=== PATIENT | female | born 1935 | race Caucasian/White ===

== ENCOUNTER 2017-04-18 08:56 | Inpatient (IN) | payer MEDICARE, BC ==
[2017-04-18 09:29] LABS: CH 33.8; CHCM 33.9; HCT 45.7 % (34.0-46.0); HDW 2.13; Immature Gran Flag Marked; MCH 32.8 pg (25.0-35.0); MCHC 32.8 g/dL (31.0-37.0); Mean Platelet Volume 8.1; RBC 4.57 m/uL (3.80-5.40); RDW 13.8 % (11.5-15.5); WBC 14.5 k/uL (3.8-10.6); WBC (Perox) 14.24
[2017-04-18 09:41] LABS: ALT 43 U/L (9-52); AST 37 U/L (14-36); Add Differential Manual Differential; Alkaline Phosphatase 125 U/L (38-126); Anion Gap 10 mmol/L; Blood Urea Nitrogen 18 mg/dL (7-17); Calcium 8.8 mg/dL (8.4-10.2); Carbon Dioxide 30 mmol/L (22-30); Chloride 102 mmol/L (98-107); Glucose 167 mg/dL (74-99); Non-African American GFR(MDRD) >60 (>60 ml/min/1.73 sqM); Potassium 3.5 mmol/L (3.5-5.1); Sodium 142 mmol/L (137-145); Total Bilirubin 0.9 mg/dL (0.2-1.3); Total Protein 6.4 g/dL (6.3-8.2)
[2017-04-18 09:43] LABS: Prothrombin Time 10.4 sec (9.0-12.0)
--- NOTE | 2017-04-18 09:43 | CT ---
EXAMINATION TYPE: CT brain wo con for TPA DATE OF EXAM: 04/18/2017 COMPARISON: 12/12/2013 HISTORY: Rt side weakness CT DLP: 1147 mGycm Automated exposure control for dose reduction was used. FINDINGS: Exam particularly involving the posterior fossa limited by streak artifact. Assessment for hemorrhage therefore limited. There is extensive degenerative change with areas of low attenuation the periventricular region which are nonspecific but likely related to remote microvascular ischemia. Intracranial atherosclerotic changes are noted. There is to be an area of diminished attenuation invo lving the left basal ganglia. Cannot exclude slight mass effect upon the frontal horn of the left lat eral ventricle. Likely seen on the previous exam. No midline shift. IMPRESSION: LIMITED ASSESSMENT FOR POSTERIOR FOSSA DUE TO EXTREME STREAK ARTIFACT WITH PARTICULAR ATTENTION TO TH E CEREBELLUM. 2. REMAINING PORTIONS OF THE INTRACRANIAL STRUCTURES DEMONSTRATE NO DEFINITE INTRACRANIAL HEMORRHAGE OR MASS EFFECT. DEGENERATIVE CHANGES ARE SEEN HOWEVER, AREA OF DIMINISHED ATTENUATION INVOLVING THE L EFT BASAL GANGLIA WAS NOT SEEN ON THE PREVIOUS EXAM. COULD NOT EXCLUDE AN AREA OF ACUTE TO SUBACUTE I NFARCT. CORRELATE WITH MRI COULD BE OBTAINED. ADDITIONALLY, TINY HYPERDENSITY IN THE REGION OF THE M2 SEGMENT OF THE LEFT MCA NOTED ON AXIAL IMAGE 25. GIVEN THERE IS OTHER AREAS OF ATHEROSCLEROTIC PLAQU E THIS COULD REPRESENT PLAQUE ALTHOUGH A SMALL AREA OF ACUTE THROMBUS COULD NOT BE EXCLUDED WITHIN TH E VESSEL.
[2017-04-18 09:45] LABS: Manual Review Performed; Nucleated Red Blood Cells 0 /100 WBC (0-0); Total Cells Counted 200; Toxic Granulation Present
[2017-04-18 09:46] LABS: RBC Morphology Normal
[2017-04-18 09:58] LABS: Partial Thromboplastin Time 20.3 sec (22.0-30.0)
[2017-04-18] MEDS ORDERED: RX INFO: IV CONTRAST WAS GIVEN 1 EACH MISC MISCELLANE PRN (09:59)
[2017-04-18 10:13] LABS: Creatine Kinase MB 0.5 ng/mL (0.0-2.4)
[2017-04-18 10:19] LABS: Troponin I 0.098 ng/mL (0.000-0.034)
[2017-04-18 10:25] LABS: Appearance,Urine Clear (Clear); Bilirubin,Urine Negative (Negative); Glucose,Urine (UA) Trace (Negative); Ketones,Urine 1+ (Negative); Leukocyte Esterase,Urine Trace (Negative); Mucus,Urine Many /hpf; Nitrite,Urine Negative (Negative); Particle Count 10879; Protein,Urine 1+ (Negative); Specific Gravity,Urine 1.021 (1.001-1.035); UA Billing (MACRO vs. MICRO) MICRO; WBC,Urine 5 /hpf (0-5)
[2017-04-18] MEDS ORDERED: LABETALOL 5 MG/ML VIAL MDV IVP STA ×2 (10:30→13:08)
[2017-04-18] MEDS ORDERED: SODIUM CHLORIDE 0.9% 500 ML IV ONE (10:48)
--- NOTE | 2017-04-18 10:52 | CT ---
EXAMINATION TYPE: CT angio head neck DATE OF EXAM: 04/18/2017 HISTORY: altered mental status COMPARISON: NONE CT DLP: 466 mGycm. Automated Exposure Control for Dose Reduction was Utilized. TECHNIQUE: CTA scan of the neck is performed with IV Contrast, patient injected with 65 mL of Omnipa que 350, axial images are obtained, coronal and sagittal reformatted images are reviewed. Three-D rec onstructed images are created on an independent workstation and reviewed. FINDINGS: There is atherosclerotic plaque involving the right carotid bifurcation but no significant hemodynamic stenosis. External carotid artery appears patent. Mild atherosclerotic change involving t he proximal right internal carotid artery. There is mild atherosclerotic plaque involving the left carotid bifurcation. No significant stenosis. External carotid artery patent. There is atherosclerotic plaque involving the origin of the left common carotid artery estimated at 2 0%. Atherosclerotic plaque of the visualized thoracic aorta noted. On the left vertebral artery is dominant and the basilar artery enhances normally. There does appear to be area of narrowing involving the origin of the left posterior cerebral artery. Atherosclerotic plaque noted intracranially. Visualized portions of the carotid arteries enhance. 3-D reconstructions. Patient clinically able to cooperate could not exclude an aneurysm at the bifurc ation of the right MCA. Question lack of enhancement of the left MCA at its bifurcation. Only identify one branch vessel. Biapical pleural thickening noted. IMPRESSION: 1. Only identify one branch vessel at the bifurcation of the left MCA. Acute thrombosis in the differ ential diagnosis. 2. 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 3. Degenerative and nonspecific white matter changes are again seen with an area of asymmetric densit y involving the left basal ganglia, temporal lobe and areas of the parietal lobe which may been the b asis of an acute area of infarct. Correlate clinically. Correlate with diffusion MRI as warranted.
--- NOTE | 2017-04-18 11:16 | XR ---
EXAMINATION TYPE: XR chest 2V DATE OF EXAM: 04/18/2017 COMPARISON: Chest x-ray February 28, 2013. HISTORY: Altered mental status and weakness. TECHNIQUE: Frontal and lateral views of the chest are obtained. FINDINGS: There is chronic parenchymal change with new small left pleural effusion and associated le ft basilar atelectasis and/or infiltrate. There is moderate apical pleural thickening and scarring bi laterally redemonstrated The cardiac silhouette size is stable and enlarged with atherosclerotic and ectatic aorta. New central vascular congestion is felt present. The osseous structures are demineral ized. IMPRESSION: Chronic parenchymal changes and cardiomegaly with new mild central vascular congestion a nd new small left pleural effusion and associated left basilar atelectasis and/or infiltrate noted.
--- NOTE | 2017-04-18 12:21 | ED ---
General Adult HPI - General Chief complaint: Weakness Stated complaint: Altered Mental Status Time Seen by Provider: 04/18/17 09:07 Source: family, EMS, RN notes reviewed Mode of arrival: EMS - History of Present Illness Initial comments: 82-year-old female presenting from home with altered mental status. Patient was last seen normal at 9:30 PM last night. She has dementia and is usually alert and oriented 1. She was able to help with activities of daily living at baseline. She was found by her unarousable, staring to the left. Patient was brought to the emergency at approximately 9 AM. No known history of anticoagulation. No reported history of pain complaints, fever, vomiting. - Related Data Home Medications Medication Instructions Recorded Confirmed Atorvastatin [Lipitor] 40 mg PO HS 04/18/17 04/18/17 Donepezil [Aricept] 10 mg PO DAILY 04/18/17 04/18/17 Lisinopril [Zestril] 40 mg PO DAILY 04/18/17 04/18/17 Metoprolol Tartrate [Lopressor] 50 mg PO BID 04/18/17 04/18/17 Tolterodine ER [Detrol LA] 4 mg PO HS 04/18/17 04/18/17 carBAMazepine 200 mg PO QID 04/18/17 04/18/17 Allergies Allergy/AdvReac Type Severity Reaction Status Date / Time ketorolac [From Toradol] Allergy Unknown Verified 04/18/17 12:12 meperidine [From Demerol] Allergy Unknown Verified 04/18/17 12:12 Penicillins Allergy Unknown Verified 04/18/17 12:12 Review of Systems ROS Statement: Those systems with pertinent positive or pertinent negative responses have been documented in the HPI. ROS Other: All systems not noted in ROS Statement are negative. Limitations: ROS unobtainable due to patients medical condition Past Medical History Past Medical History: Dementia, Hypertension History of Any Multi-Drug Resistant Organisms: Unobtainable Past Psychological History: Unable to Obtain Smoking Status: Unknown if ever smoked Past Alcohol Use History: Unable to Obtain Past Drug Use History: Unable to Obtain General Exam General appearance: lethargic Head exam: Present: other (Bruising over right frontal and temporal region appears old.) Eye exam: Present: other (left gaze, right-sided neglect) ENT exam: Present: mucous membranes dry Neck exam: Present: normal inspection. Absent: meningismus Respiratory exam: Present: rhonchi. Absent: respiratory distress Cardiovascular Exam: Present: normal rhythm, tachycardia GI/Abdominal exam: Present: soft. Absent: distended, tenderness Extremities exam: Present: normal capillary refill. Absent: pedal edema Neurological exam: Present: motor sensory deficit (Flaccid paralysis on the right, left gaze, minimally responsive, NIH of 29) Psychiatric exam: Present: depressed, flat affect Skin exam: Present: warm, dry, other (Ecchymosis, right face, bilateral upper and lower extremities) Course Vital Signs 04/18/17 04/18/17 04/18/17 09:00 09:22 09:37 Pulse Rate 111 H 110 H 104 H Respiratory 19 20 19 Rate Blood Pressure 189/107 200/137 O2 Sat by Pulse 87 L Oximetry 04/18/17 04/18/17 04/18/17 09:52 10:07 10:24 Pulse Rate 110 H 102 H 104 H Respiratory 20 19 20 Rate Blood Pressure 221/117 213/88 214/79 O2 Sat by Pulse Oximetry 04/18/17 04/18/17 04/18/17 10:37 10:52 11:07 Pulse Rate 100 105 H 98 Respiratory 20 20 19 Rate Blood Pressure 197/92 192/99 172/80 O2 Sat by Pulse Oximetry 04/18/17 11:30 Pulse Rate 94 Respiratory 19 Rate Blood Pressure 163/83 O2 Sat by Pulse Oximetry EKG Findings - EKG Comments: EKG Findings:: EKG shows sinus tachycardia with a left anterior fascicular block ventricular rate of 106, MD interval 156, QRS duration 88, QTC 448. Medical Decision Making - Medical Decision Making 82-year-old female presenting with altered mental status and right-sided flaccid paralysis. Patient does have leftward gaze with right-sided neglect. NIH is 29. Patient woke with these symptoms at 6 AM. Last seen normal 9:[address] is obtained and is negative for intracranial hemorrhage, there is diminished attenuation in the left basal ganglia, and concern for acute infarction in the left M2 distribution. CT is obtained and is consistent with these findings for acute thrombus. Given the time course patient is not a TPA candidate. Case is discussed with the neuro interventionalist. He believes this is a completed infarct and no intervention is needed. Laboratory studies do reveal mild elevation in serum white count, chest x-ray shows atelectasis first infiltrated. Troponin is mildly elevated, will be trended. Patient will be admitted for neurology evaluation. Diagnosis: Acute left MCA stroke with right-sided flaccid paralysis. - Lab Data Result diagrams: 04/18/17 09:10 04/18/17 09:10 Lab Results 04/18/17 04/18/17 04/18/17 Range/Units 09:10 09:10 09:10 WBC 14.5 H (3.8-10.6) k/uL RBC 4.57 (3.80-5.40) m/uL Hgb 15.0 (11.4-16.0) gm/dL Hct 45.7 (34.0-46.0) % MCV 100.0 (80.0-100.0) fL MCH 32.8 (25.0-35.0) pg MCHC 32.8 (31.0-37.0) g/dL RDW 13.8 (11.5-15.5) % Plt Count 257 (150-450) k/uL Neutrophils % (Manual) 67.5 % Band Neutrophils % 15.0 % Lymphocytes % (Manual) 5.5 % Monocytes % (Manual) 10.5 % Eosinophils % (Manual) 1.0 % Basophils % (Manual) 0.5 % Neutrophils # (Manual) 12.0 H (1.3-7.7) k/uL Lymphocytes # (Manual) 0.8 L (1.0-4.8) k/uL Monocytes # (Manual) 1.5 H (0-1.0) k/uL Eosinophils # (Manual) 0.1 (0-0.7) k/uL Basophils # (Manual) 0.1 (0-0.2) k/uL Nucleated RBCs 0 (0-0) /100 WBC Manual Slide Review Performed Toxic Granulation Present RBC Morphology Normal PT (9.0-12.0) sec INR (<1.2) APTT (22.0-30.0) sec Sodium 142 (137-145) mmol/L Potassium 3.5 (3.5-5.1) mmol/L Chloride 102 (98-107) mmol/L Carbon Dioxide 30 (22-30) mmol/L Anion Gap 10 mmol/L BUN 18 H (7-17) mg/dL Creatinine 0.56 (0.52-1.04) mg/dL Est GFR (MDRD) Af Amer >60 (>60 ml/min/1.73 sqM) Est GFR (MDRD) Non-Af >60 (>60 ml/min/1.73 sqM) Glucose 167 H (74-99) mg/dL Calcium 8.8 (8.4-10.2) mg/dL Total Bilirubin 0.9 (0.2-1.3) mg/dL AST 37 H (14-36) U/L ALT 43 (9-52) U/L Alkaline Phosphatase 125 (38-126) U/L Total Creatine Kinase 196 H (30-135) U/L CK-MB (CK-2) 0.5 (0.0-2.4) ng/mL CK-MB (CK-2) Rel Index 0.3 Troponin I 0.098 H* (0.000-0.034) ng/mL Total Protein 6.4 (6.3-8.2) g/dL Albumin 3.5 (3.5-5.0) g/dL Urine Color Urine Appearance (Clear) Urine pH (5.0-8.0) Ur Specific [place] (1.001-1.035) Urine Protein (Negative) Urine Glucose (UA) (Negative) Urine Ketones (Negative) Urine Blood (Negative) Urine Nitrite (Negative) Urine Bilirubin (Negative) Urine Urobilinogen (<2.0) mg/dL Ur Leukocyte Esterase (Negative) Urine WBC (0-5) /hpf Urine Mucus (None) /hpf 04/18/17 04/18/17 Range/Units 09:10 09:54 WBC (3.8-10.6) k/uL RBC (3.80-5.40) m/uL Hgb (11.4-16.0) gm/dL Hct (34.0-46.0) % MCV (80.0-100.0) fL MCH (25.0-35.0) pg MCHC (31.0-37.0) g/dL RDW (11.5-15.5) % Plt Count (150-450) k/uL Neutrophils % (Manual) % Band Neutrophils % % Lymphocytes % (Manual) % Monocytes % (Manual) % Eosinophils % (Manual) % Basophils % (Manual) % Neutrophils # (Manual) (1.3-7.7) k/uL Lymphocytes # (Manual) (1.0-4.8) k/uL Monocytes # (Manual) (0-1.0) k/uL Eosinophils # (Manual) (0-0.7) k/uL Basophils # (Manual) (0-0.2) k/uL Nucleated RBCs (0-0) /100 WBC Manual Slide Review Toxic Granulation RBC Morphology PT 10.4 (9.0-12.0) sec INR 1.0 (<1.2) APTT 20.3 L (22.0-30.0) sec Sodium (137-145) mmol/L Potassium (3.5-5.1) mmol/L Chloride (98-107) mmol/L Carbon Dioxide (22-30) mmol/L Anion Gap mmol/L BUN (7-17) mg/dL Creatinine (0.52-1.04) mg/dL Est GFR (MDRD) Af Amer (>60 ml/min/1.73 sqM) Est GFR (MDRD) Non-Af (>60 ml/min/1.73 sqM) Glucose (74-99) mg/dL Calcium (8.4-10.2) mg/dL Total Bilirubin (0.2-1.3) mg/dL AST (14-36) U/L ALT (9-52) U/L Alkaline Phosphatase (38-126) U/L Total Creatine Kinase (30-135) U/L CK-MB (CK-2) (0.0-2.4) ng/mL CK-MB (CK-2) Rel Index Troponin I (0.000-0.034) ng/mL Total Protein (6.3-8.2) g/dL Albumin (3.5-5.0) g/dL Urine Color Yellow Urine Appearance Clear (Clear) Urine pH 6.0 (5.0-8.0) Ur Specific [place] 1.021 (1.001-1.035) Urine Protein 1+ H (Negative) Urine Glucose (UA) Trace H (Negative) Urine Ketones 1+ H (Negative) Urine Blood Negative (Negative) Urine Nitrite Negative (Negative) Urine Bilirubin Negative (Negative) Urine Urobilinogen 3.0 (<2.0) mg/dL Ur Leukocyte Esterase Trace H (Negative) Urine WBC 5 (0-5) /hpf Urine Mucus Many H (None) /hpf Critical Care Time Critical Care Time: Yes Total Critical Care Time: 43 Disposition Clinical Impression: CVA (cerebral vascular accident) Disposition: ADMITTED IP TO THIS [facility] Condition: Serious Referrals: None,Stated [Primary Care Provider] - 1-2 days Decision to Admit Reason: Admit from EC Decision Date: 04/18/17 Decision Time: 11:30
[2017-04-18] MEDS ORDERED: ASPIRIN 300 MG SUPP RECTAL STA (12:24)
[2017-04-18] MEDS: SODIUM CHLORIDE 0.9% 1,000 ML IV SCH (13:15)
--- NOTE | 2017-04-18 15:36 | US ---
EXAMINATION TYPE: US carotid duplex BILAT DATE OF EXAM: 04/18/2017 COMPARISON: CTA head and neck earlier today. carotid ultrasound June 10, 2013. CLINICAL HISTORY: Stenosis. Stroke, pt unresponsive EXAM MEASUREMENTS: RIGHT: Peak Systolic Velocity (PSV) cm/sec ----- Right CCA: 49.8 ----- Right ICA: 61.1 ----- Right ECA: 54.8 ICA/CCA ratio: 1.2 RIGHT: End Diastole cm/sec ----- Right CCA: 10.6 ----- Right ICA: 17.7 ----- Right ECA: 15.3 LEFT: Peak Systolic Velocity (PSV) cm/sec ----- Left CCA: 36.2 ----- Left ICA: 84.5 ----- Left ECA: 85.6 ICA/CCA ratio: 2.3 LEFT: End Diastole cm/sec ----- Left CCA: 4.9 ----- Left ICA: 19.7 ----- Left ECA: 7.8 VERTEBRALS (direction of flow): Right Vertebral: Antegrade Left Vertebral: Unable to visualize No significant stenosis seen, higher velocities left ICA due to tortuosity Grayscale images redemonstrate fairly moderate eccentric hyperechoic plaque at right carotid bulb wit h more mild to moderate eccentric plaque at left carotid bulb. Velocity measurements and ratios in vi sualized portion of both internal carotid arteries remains within normal limits. Technologist cannot identified normal antegrade flow in left vertebral artery but appears dominant and patent without sig nificant stenosis on recent CTA study. IMPRESSION: Mild to moderate calcified plaque bilaterally redemonstrated without significant stenosi s seen in either internal carotid artery. Findings correlate with recent CTA exam.
[2017-04-18 16:11] VITALS: RESP 20
--- NOTE | 2017-04-18 22:34 | P.HPIM ---
History of Present Illness H&P Date: 04/18/17 Chief Complaint: Right-sided weakness History of presenting complaint: This is a 82-year-old patient, the history is obtained by the [id number] at the bedside. Patient's chronic stable medical conditions include 1 artery disease, dementia, hypertension, hyperlipidemia, osteoarthritis, trigeminal neuralgia, and neurogenic bladder. Patient's called the son stating that the patient could not be woken up artery responsive and when the sentiment and they found that the right side was not morning she'll not speaking and decreased responsiveness. As patient is brought into the ER. Review of systems cannot be done as patient cannot speak Past history: Coronary artery disease, dementia, hypertension, hyperlipidemia, osteoarthritis , trigeminal neuralgia, neurogenic bladder, gait dysfunction, left eye ptosis Surgical history: Not known Home medications: Reviewed in the computed ALLERGIES: (, Penicillin, meperidine VITAL SIGNS: Pulse 111, respiration 18, that pressure 189/107, pulse ox 87% room air GENERAL: Thin built, laying awake looking to the left. EYES: Pupils equal. Conjunctiva normal. HEENT: External appearance of nose and ears normal, oral cavity dry mucous membrane. NECK: JVD not raised; masses not palpable. HEART: First and second heart sounds are normal; no edema. LUNGS: Respiratory rate normal; decreased breath sounds. ABDOMEN: Soft, nontender, liver spleen not palpable, no masses palpable. LYMPHATICS: No lymph nodes palpable in the axilla and neck. PSYCH: Patient not following commandsl. NEUROLOGICAL: [Slight facial asymmetry, looking to the left, in addition to the right side, power 0/5 on the right side, increased reflexes on the right side, positive Babinski on the right side Investigations: White count 14.5, hemoglobin 15, platelets 257, potassium 3.5, troponin 0.098 EKG-reviewed Computed tomography scan of the brain-possible changes in the left basal ganglia Carotid Doppler-no could go stenosis Assessment: -Acute stroke in the basal ganglia causing right hemiplegia and dysphagia and dysarthria with right neglect and a right-handed patient likely ischemic in nature -Cor artery disease with prior history of PA -Alzheimer's dementia late onset type advanced -Essential hypertension urgent on presentation -Hyperlipidemia -Primary osteoarthritis multiple joints bilateral -Chronic trigeminal neuralgia -Chronic neurogenic bladder Plan: Care was discussed at length with the bed.[id number] the bedside. She thinks the patient is DO NOT RESUSCITATE and will confirm the same and the . In the meantime to proceed with aspiration precautions, NG tube to give medications for care with the son, DVT prophylaxis, subcu the patient nothing by mouth. Prognosis appears poor we'll see how the patient doesn't another 24 hours and it is no improvement comfort care may be appropriate. Given the multiple comorbidities. Past Medical History Past Medical History: Coronary Artery Disease (CAD), Dementia, Eye Disorder, Hyperlipidemia, Hypertension, Osteoarthritis (OA) Additional Past Medical History / Comment(s): Severe dementia, L eye ptosis, trigeminal neuralgia, deteriorating language/difficulty expressing self, balance issues with falls, gait disturbance, difficulty controlling bladder, neurogenic bladder. History of Any Multi-Drug Resistant Organisms: None Reported Past Surgical History: Unable to Obtain Past Anesthesia/Blood Transfusion Reactions: Unable to Obtain Smoking Status: Unknown if ever smoked - Past Family History Father Family Medical History: Unable to Obtain Mother Family Medical History: Unable to Obtain Medications and Allergies Home Medications Medication Instructions Recorded Confirmed Type Atorvastatin [Lipitor] 40 mg PO HS 04/18/17 04/18/17 History Donepezil [Aricept] 10 mg PO DAILY 04/18/17 04/18/17 History Lisinopril [Zestril] 40 mg PO DAILY 04/18/17 04/18/17 History Metoprolol Tartrate [Lopressor] 50 mg PO BID 04/18/17 04/18/17 History Tolterodine ER [Detrol LA] 4 mg PO HS 04/18/17 04/18/17 History carBAMazepine 200 mg PO QID 04/18/17 04/18/17 History Allergies Allergy/AdvReac Type Severity Reaction Status Date / Time ketorolac [From Toradol] Allergy Unknown Verified 04/18/17 12:12 meperidine [From Demerol] Allergy Unknown Verified 04/18/17 12:12 Penicillins Allergy Unknown Verified 04/18/17 12:12 Results CBC & Chem 7: 04/18/17 09:10 04/18/17 09:10
[2017-04-19] MEDS: carBAMazepine 200 MG TAB PO SCH ×5 (05:56→21:03)
[2017-04-19] MEDS: METOPROLOL TARTRATE 50 MG TAB PO SCH ×3 (05:56→21:03)
[2017-04-19] MEDS: ATORVASTATIN 40 MG TAB PO SCH ×2 (05:56→21:03)
[2017-04-19 06:40] LABS: Mean Platelet Volume 7.2
[2017-04-19] MEDS: HEPARIN SODIUM,PORCINE 5,000 UNIT/ML 1 ML VIAL SQ SCH ×3 (06:41→21:04)
[2017-04-19 06:58] LABS: Cholesterol 149 mg/dL (<200); HDL Cholesterol 55 mg/dL (40-60)
[2017-04-19] MEDS: LISINOPRIL 20 MG TAB PO SCH (07:29)
[2017-04-19] MEDS: PANTOPRAZOLE 40 MG/10 ML VIAL IVP SCH (07:30)
[2017-04-19] MEDS: ASPIRIN 300 MG SUPP RECTAL SCH (08:03)
[2017-04-19] MEDS: SODIUM CHLORIDE 0.9% 1,000 ML IV SCH ×3 (08:05→21:05)
--- NOTE | 2017-04-19 09:22 | CONS ---
DATE OF CONSULTATION: 04/18/2017 CHIEF COMPLAINT: Stroke. HISTORY OF PRESENT ILLNESS: The patient is an 82-year-old female who is being evaluated today on 04/18/17 by the neurology service per the request of Dr. Ochoa for a stroke. The patient was brought in to [facility] Emergency Room from her home after she was found to be difficult to arouse. It was noticed that the patient was not moving her right side. In the emergency room, she was noticed to have flaccid paralysis on the right side with left gaze preference and right side neglect. The patient was also nonverbal. The patient does have history of dementia and is usually oriented to person only. In the emergency room, a CT scan of the brain was done, which showed hypoattenuation in the left middle cerebral artery distribution with an evidence of a thrombus in the left middle cerebral artery. 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 Her carotid Doppler showed no hemodynamically significant stenosis. Her CBC was normal except for mild leukocytosis at 14.5. The patient was started on rectal aspirin 300 mg daily and on IV hydration and admitted for further workup and management. The patient is unable to swallow. At the time of my evaluation, she is lying in her bed and continues to have flaccid paralysis on her right side and appears to have global aphasia. She does move the left side spontaneously. She has an obvious right gaze palsy. PAST MEDICAL HISTORY: Dementia, dyslipidemia, hypertension. SOCIAL HISTORY: Unable to obtain. FAMILY HISTORY: Unable to obtain. HOME MEDICATIONS: Reviewed in the chart. ALLERGIES: TORADOL, DEMEROL, PENICILLIN. REVIEW OF SYSTEMS: Unable to obtain due to ( ). PHYSICAL EXAM: Vital signs show a temperature of 96.8, pulse 100, respirations 20, blood pressure 169/94. GENERAL APPEARANCE: The patient is a thin, elderly, female who appears to be resting with an obvious right flaccid paralysis. Neck is supple with no masses felt. CARDIOVASCULAR: Regular rate and rhythm. ABDOMEN: Nontender, nondistended. Extremities showed no edema or clubbing. NEUROLOGICAL EXAM: The patient is awake, but appears to have global aphasia. She does not follow any commands. She does move the left upper and lower extremities spontaneously, but there is flaccid paralysis on the right side. She has an obvious right facial droop and right gaze palsy. No tremors or seizure-like activity are seen. IMPRESSION: 1. Acute ischemic stroke, left middle cerebral artery distribution. 2. Right hemiplegia. 3. Global aphasia. 4. Dysphagia. RECOMMENDATIONS: The patient does appear to have suffered a large acute ischemic stroke involving the left middle cerebral artery with evidence of a thrombus on CT scan of the brain and CT angiogram of the brain. Due to the time frame and due to the size of the stroke and given the patient's advanced age and preexisting comorbidities, she was not felt to be a candidate for TPA. Continue aspirin 300 mg daily rectally. Speech therapy and physical therapy have been consulted. I will start her on Protonix IV for GI prophylaxis and heparin for DVT prophylaxis. I will order for daily platelet count. An EEG has been ordered. Continue IV fluid as tolerated. According to the nursing staff , the patient's family will be meeting tomorrow to discuss the possibility of PEG tube placement if she continues to have dysphagia. Prognosis is guarded. I will continue to follow with you. Further recommendations to follow. Thank you for allowing me to participate in the care of your patient. If you have any questions, please feel free to contact me. TIN
[2017-04-19 11:42] VITALS: BMI 12.6
--- NOTE | 2017-04-19 16:33 | P.PN ---
Subjective Principal diagnosis: Patient is an 82-year-old female who is being followed by the neurology service for stroke. Patient was at home and was difficult to arouse so she was brought to [facility] emergency room for further evaluation. Patient was noted to have flaccid paralysis on the right side with left gaze preference and right-sided neglect. Patient was also nonverbal. Patient lives with family but does have a history of dementia. Computed tomography scan of the brain showed hypoattenuation in the left middle cerebral artery distribution with an evidence of a thrombus in the left middle cerebral artery. 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 Carotid Doppler showed no hemodynamically significant stenosis. Due to patient's decreased mentation and inability to swallow, patient was started on rectal aspirin 300 mg daily and IV hydration. At the time of my evaluation, patient is resting comfortably in bed and continues to have flaccid paralysis on the right side and appears to have global aphasia. Patient does move the left side spontaneously. Objective - Vital Signs Vital signs: Vital Signs Temp 97.4 F L 04/19/17 15:50 Pulse 105 H 04/19/17 15:50 Resp 20 04/19/17 15:50 BP 164/98 04/19/17 15:50 Pulse Ox 94 L 04/19/17 15:50 Intake & Output 04/18/17 04/19/17 04/19/17 18:59 06:59 18:59 Intake Total 500 800 Output Total 600 Balance 500 200 Weight 54.431 kg 35.5 kg 35.5 kg Intake: IV 500 800 Sodium Chloride 0.9% 1, 500 800 000 ml @ 100 mls/hr IV . Q10H [facility] Rx#:[id number] Oral 0 Output: Urine 600 Other: Voiding Method Indwelling Catheter Indwelling Catheter Indwelling Catheter # Voids 1 - Exam PHYSICAL EXAM: GENERAL APPEARANCE: Patient is a well-developed, female who appears to be in no acute distress. HEENT: Normocephalic, atraumatic, obvious right facial asymmetry is seen. Neck is supple with no masses felt. CARDIOVASCULAR: Regular rate and rhythm. ABDOMEN: Nontender, nondistended. EXTREMITIES: Show no edema or clubbing. NEUROLOGICAL EXAM: Patient awakens when her name is called. She does not make eye contact. Patient does appear to have global aphasia. Patient does not follow simple commands. She does move left upper and lower extremities spontaneously. Patient did reach out with her left hand to hold my hand. There is flaccid paralysis on the right side. She has an obvious right facial droop and right gaze palsy. No tremors or seizure-like activity are seen. - Labs CBC & Chem 7: 04/19/17 05:56 04/18/17 09:10 Assessment and Plan Plan: Impression: 1. Acute ischemic stroke, left middle cerebral artery distribution 2. Right hemiplegia 3. Global aphasia 4. Dysphagia Recommendations: Patient does appear to have suffered a large acute ischemic stroke involving left middle cerebral artery with evidence of a thrombus on computed tomography scan of the brain and CT angiogram of the brain. Patient was not felt to be a candidate for TPA. I recommend to continue aspirin 300 mg daily rectally. Continue speech therapy and physical therapy. Continue neurological checks. Reportedly family had a meeting and it was decided patient was to be made DO NOT RESUSCITATE. Prognosis continues to be guarded. EEG was ordered but not yet performed. Continue supportive care. I will continue to follow with you. Further recommendations to follow. I performed an examination of the patient and discussed the management with the [employer]. I have reviewed the [employer] notes and agree with the findings and plan of care.
--- NOTE | 2017-04-19 19:04 | P.PN ---
Progress Note - Text DATE OF SERVICE: 04/19/2017 PRESENTING COMPLAINT: Stroke INTERVAL HISTORY: 82-year-old patient who could not be woken up and was significantly unresponsive to her . Patient was brought to the emergency department computed tomography scan confirmed acute stroke. 04/19/2017: Patient is minimally responsive does arouse slightly to physical stimuli. No purposeful movement. IV fluids continue, patient remains nothing by mouth due to current mental status. Ruelas catheter in place. Neurology consulted. REVIEW OF SYSTEMS: Unable to assess secondary to patient condition. CURRENT MEDICATIONS Aspirin, Lipitor, Tegretol, heparin, Zestril, Lopressor, Protonix. PHYSICAL EXAM VITAL SIGNS: Temperature 97.2, heart rate 104, respiratory rate 20, blood pressure 186/98, oxygen saturation 93% on 15 L nonrebreather mask. GENERAL APPEARANCE: Lying in bed, looks to the left. . EYES: Pupils equal. Conjunctiva normal. NECK: JVD not raised. Mass not palpable. RESPIRATORY: Respiratory effort normal. Lungs decreased breath sounds. CARDIOVASCULAR: First and second sounds normal. No edema. ABDOMEN: Soft. Liver and spleen not palpable. No tenderness. No mass palpable. PSYCHIATRY: Alert and oriented x3. Mood and affect normal. NEUROLOGICAL: Slight facial asymmetry, looking to the left, power 0/5 on the right side, increased reflexes on the right side positive Babinski on the right side INVESTIGATIONS: LABS: White blood cell count 14.5, INR 1.0, sodium 1.4 to, potassium 3.5, troponin 0.098. Carotid Doppler: Mild to moderate calcified plaque bilaterally 3 demonstrated without significant stenosis seen in either internal carotid artery. ASSESSMENT: -Acute stroke in the basal ganglia causing right hemiplegia and dysphagia and dysarthria with right neglect and a right-handed patient likely ischemic in nature -Coronary artery disease with prior history of CA -Alzheimer's dementia late onset type advanced -Essential hypertension urgent on presentation -Hyperlipidemia -Primary osteoarthritis multiple joints bilateral -Chronic trigeminal neuralgia -Chronic neurogenic bladder PLAN: Continue neuro checks, EEG pending, speech and physical therapy have been consulted. We will continue to monitor patient very closely, prognosis is guarded. Plan of care discussion deferred until family present at the bedside. WEBSITE OPTIMIZATION STRATEGIST statement: Patient was seen and examined by nurse practitioner Ping Bloom and all elements of the case discussed with attending Dr. Ochoa
--- NOTE | 2017-04-20 05:40 | EEG ---
DATE OF SERVICE: 04/19/2017 REASON FOR TESTING: Stroke. DESCRIPTION OF THE PROCEDURE: This EEG was performed using a 21-channel digital electroencephalograph, following international 10-20 system. DESCRIPTION OF THE RECORDING: From the beginning of the tracing, and with the patient's eyes closed, the background rhythm was mostly consisting of 6 Hz theta frequency in the posterior occipital leads. No obvious asymmetry is seen. Photic stimulation was performed with no driving response seen. No pathological waves were elicited. Hyperventilation was not performed. The patient remains awake throughout the tracing. No epileptiform discharges were seen. Her EKG lead showed a tachycardiac rate with an irregularly irregular rhythm. INTERPRETATION: This awake EEG is abnormal due to the presence of generalized slowing of the background rhythm, mostly in a theta range. This is consistent with mild encephalopathy. No epileptiform discharges were seen. The absence of epileptiform discharges does not rule out the diagnosis of epilepsy, therefore clinical correlation is recommended. Of note, her EKG lead showed an irregularly, irregular rhythm with a tachycardiac rate. TIN
[2017-04-20 06:26] LABS: Mean Platelet Volume 8.6
[2017-04-20] MEDS: SODIUM CHLORIDE 0.9% 1,000 ML IV SCH ×2 (08:35→08:56)
[2017-04-20] MEDS: METOPROLOL TARTRATE 50 MG TAB PO SCH (08:36)
[2017-04-20] MEDS: carBAMazepine 200 MG TAB PO SCH ×2 (08:36→15:35)
[2017-04-20] MEDS: LISINOPRIL 20 MG TAB PO SCH (08:36)
[2017-04-20] MEDS: ASPIRIN 300 MG SUPP RECTAL SCH (08:49)
[2017-04-20] MEDS: HEPARIN SODIUM,PORCINE 5,000 UNIT/ML 1 ML VIAL SQ SCH (08:56)
[2017-04-20] MEDS ORDERED: FUROSEMIDE 10 MG/ML 4 ML VIAL IV STA (13:52)
[2017-04-20] MEDS ORDERED: FUROSEMIDE 10 MG/ML 4 ML VIAL ONE (13:54)
[2017-04-20] MEDS: PANTOPRAZOLE 40 MG/10 ML VIAL IVP SCH (13:56)
[2017-04-20] MEDS ORDERED: MORPHINE SULFATE (100 MG/2 ML) 100 MG in SODIUM CHLORIDE 0.9% 100 ML IV SCH (14:15)
[2017-04-20 16:51] VITALS: BP 144/69; PULSE 103; TEMP 99
--- NOTE | 2017-04-20 17:18 | P.PN ---
Subjective Patient is admitted for right-sided hemiplegia patient has massive stroke involving the left basal ganglia. I extensively reviewed her chart and I had extensive discussion with the family spent about 40 minutes in discussions with the family. Patient was in the spring distress when I valid the patient patient has pulmonary edema from the previous x-rays. I'm giving her Lasix. I did discussed her case with neurologist. Patient is unable to swallow anything at this time. And patient chances of reasonable neurological recovery is very minimal to no. Because of that I did discuss with the family regarding the options. [id number] and patient's were at the bedside. Family meditation of hospice. Hospice services was consulted. Objective - Vital Signs Vital signs: Vital Signs Temp 99.0 F 04/20/17 16:00 Pulse 103 H 04/20/17 16:00 Resp 20 04/20/17 16:00 BP 144/69 04/20/17 16:00 Pulse Ox 86 L 04/20/17 16:00 Intake & Output 04/19/17 04/20/17 04/20/17 18:59 06:59 18:59 Intake Total 800 500 Output Total 600 700 Balance 200 -200 Weight 35.5 kg 0 g Intake: IV 800 500 Sodium Chloride 0.9% 1, 800 500 000 ml @ 100 mls/hr IV . Q10H [facility] Rx#:[id number] Oral 0 0 Output: Urine 600 700 Other: Voiding Method Indwelling Catheter Indwelling Catheter Indwelling Catheter # Voids 1 - Exam PHYSICAL EXAMINATION: GENERAL: Patient is on 100% nonrebreather in significant respiratory distress. Patient is awake is in significant respiratory distress unable to follow commands. HEENT: Pupils are round and equally reacting to light.. No scleral icterus. No conjunctival pallor. Normocephalic, atraumatic. No pharyngeal erythema. No thyromegaly. CARDIOVASCULAR: S1 and S2 present. No murmurs, rubs, or gallops. Tachycardic PULMONARY: Patient has diffuse crackles bilaterally. ABDOMEN: Soft, nontender, nondistended, normoactive bowel sounds. No palpable organomegaly. MUSCULOSKELETAL: No joint swelling or deformity. EXTREMITIES: No cyanosis, clubbing, or pedal edema. NEUROLOGICAL: Weakness on the right side of the body. SKIN: No rashes. - Labs CBC & Chem 7: 04/20/17 05:49 04/18/17 09:10 Assessment and Plan Plan: Cerebrovascular accident involving the left basal ganglia, extensive stroke. #2 dementia positive mistype advanced. #3 essential hypertension next and #4 hyperlipidemia #5 pulmonary edema unsure of the etiology at this time patient may have congestive heart failure unknown ejection fraction at this time. #6 trigeminal neurology. #7 neurogenic bladder Plan as mentioned above and interval history patient will be started on morphine drip, hospice will be consulted. Hospital patient is appropriate for hospice patient's family declined any further intervention including PEG tube placement.
--- NOTE | 2017-04-20 17:19 | P.DS ---
Providers Date of admission: 04/18/17 12:38 Attending physician: Jamie Ochoa Consults: 04/18/17 12:39 Consult Physician Urgent Consulting Provider: Eliza Craig Consult Reason/Comments: CVA Do you want consulting provider notified?: Yes Primary care physician: Stated None Hospital Course: Please refer to my progress note Patient Condition at Discharge: Serious Plan - Discharge Summary New Discharge Prescriptions: No Action Lisinopril [Zestril] 40 mg PO DAILY Tolterodine ER [Detrol LA] 4 mg PO HS Metoprolol Tartrate [Lopressor] 50 mg PO BID Donepezil [Aricept] 10 mg PO DAILY Atorvastatin [Lipitor] 40 mg PO HS carBAMazepine 200 mg PO QID Discharge Medication List Atorvastatin [Lipitor] 40 mg PO HS 04/18/17 [History] Donepezil [Aricept] 10 mg PO DAILY 04/18/17 [History] Lisinopril [Zestril] 40 mg PO DAILY 04/18/17 [History] Metoprolol Tartrate [Lopressor] 50 mg PO BID 04/18/17 [History] Tolterodine ER [Detrol LA] 4 mg PO HS 04/18/17 [History] carBAMazepine 200 mg PO QID 04/18/17 [History] Follow up Appointment(s)/Referral(s): None,Stated [Primary Care Provider] - 1-2 days Discharge Disposition: DC/[facility]NS IP HOSP W/[facility] IP READ
[2017-04-21] MEDS ORDERED: FUROSEMIDE 10 MG/ML 4 ML VIAL IV SCH (09:00)
== END 2017-04-20 16:54 | disposition hospice, inpatient (51) | DRG 65 ==
LOC: EC 08:56 → 6SEL 12:38
PROVIDERS: ADMIT Hospitalist; ATTEND Hospitalist
PROC: 0T9B70Z Drainage of Bladder with Drainage Device, Via Natural or Artificial Opening (ICD-10-PCS; principal; 2017-04-18)
PROC: 0D9670Z Drainage of Stomach with Drainage Device, Via Natural or Artificial Opening (ICD-10-PCS; principal; 2017-04-18)
DX: I63.312 Cerebral infarction due to thrombosis of left middle cerebral artery (principal); G81.91 Hemiplegia, unspecified affecting right dominant side; I67.1 Cerebral aneurysm, nonruptured; I11.0 Hypertensive heart disease with heart failure; I50.9 Heart failure, unspecified; N31.9 Neuromuscular dysfunction of bladder, unspecified; R47.01 Aphasia; R13.10 Dysphagia, unspecified; G30.1 Alzheimer's disease with late onset; F02.80 Dementia in other diseases classified elsewhere, unspecified severity, without behavioral disturbance, psychotic disturbance, mood disturbance, and anxiety; Z66 Do not resuscitate; Z51.5 Encounter for palliative care; I44.4 Left anterior fascicular block; D72.829 Elevated white blood cell count, unspecified; I16.0 Hypertensive urgency; I25.10 Atherosclerotic heart disease of native coronary artery without angina pectoris; I25.2 Old myocardial infarction; S00.83XA Contusion of other part of head, initial encounter; E78.5 Hyperlipidemia, unspecified; S80.11XA Contusion of right lower leg, initial encounter; S80.12XA Contusion of left lower leg, initial encounter; S40.021A Contusion of right upper arm, initial encounter; S40.022A Contusion of left upper arm, initial encounter; S00.11XA Contusion of right eyelid and periocular area, initial encounter; R26.9 Unspecified abnormalities of gait and mobility; H02.402 Unspecified ptosis of left eyelid; M19.91 Primary osteoarthritis, unspecified site; R74.8 Abnormal levels of other serum enzymes; R00.0 Tachycardia, unspecified; R29.729 NIHSS score 29; R29.6 Repeated falls; G50.0 Trigeminal neuralgia; R41.82 Altered mental status, unspecified; R47.9 Unspecified speech disturbances; R29.810 Facial weakness; H51.0 Palsy (spasm) of conjugate gaze; R47.1 Dysarthria and anarthria; Z79.899 Other long term (current) drug therapy; Z88.5 Allergy status to narcotic agent; Z88.0 Allergy status to penicillin; Z91.81 History of falling; Z71.3 Dietary counseling and surveillance
CPT/HCPCS: 36415; 70450; 70496; 70498; 71020; 80053; 80061; 81001; 82550; 82553; 84484; 85025; 85049; 85610; 85730; 93005; 93880; 95816

== ENCOUNTER 2017-04-20 17:01 | Inpatient (IN) | payer MEDICAID ==
[2017-04-20] MEDS ORDERED: ONDANSETRON 4 MG/2 ML VIAL IVP PRN (17:32)
[2017-04-20] MEDS ORDERED: SCOPOLAMINE 1.5MG/72HR PATCH TRANSDERM PRN (17:32)
[2017-04-20] MEDS ORDERED: ARTIFICIAL TEARS-HYPROMELLOSE DROPS 15 ML BTL BOTH EYES PRN (17:32)
[2017-04-20] MEDS ORDERED: LORazepam 2 MG/ML SYRINGE IV PRN (17:32)
[2017-04-20] MEDS ORDERED: ATROPINE OPHTH SOLN 1% 5ML BTL SUBLINGUAL PRN (17:32)
[2017-04-20] MEDS ORDERED: ACETAMINOPHEN SUPPOSITORY 650 MG SUPP RECTAL PRN (17:32)
[2017-04-20] MEDS ORDERED: BISACODYL 10 MG SUPP RECTAL PRN (17:39)
[2017-04-21] MEDS: MORPHINE SULFATE (100 MG/2 ML) 100 MG in SODIUM CHLORIDE 0.9% 100 ML IV SCH ×2 (04:48→10:08)
--- NOTE | 2017-04-21 11:57 | P.HPIM ---
History of Present Illness 82-year-old pleasant female was admitted for hospice. Patient had set cerebrovascular accident patient had a massive stroke involving the left basal ganglia ganglia. The chance of reasonable recovery is pretty slim because of which patient's family decided on hospice and patient medications were dyspnea except for comfort medications including IV morphine drip. Patient is pretty comfortable on IV morphine drip not in respiratory distress. Patient's Lasix as well as morphine helped to comfort her regarding the respiratory status and tachypnea. Patient will be discharged to home with hospice today. Review of Systems Doppler due to her clinical condition Past Medical History Past Medical History: Coronary Artery Disease (CAD), Dementia, Eye Disorder, Hyperlipidemia, Hypertension, Osteoarthritis (OA) Additional Past Medical History / Comment(s): Severe dementia, L eye ptosis, trigeminal neuralgia, deteriorating language/difficulty expressing self, balance issues with falls, gait disturbance, difficulty controlling bladder, neurogenic bladder. History of Any Multi-Drug Resistant Organisms: None Reported Past Surgical History: Unable to Obtain Past Anesthesia/Blood Transfusion Reactions: Unable to Obtain Smoking Status: Unknown if ever smoked - Past Family History Father Family Medical History: Unable to Obtain Mother Family Medical History: Unable to Obtain Medications and Allergies Home Medications Medication Instructions Recorded Confirmed Type Atorvastatin [Lipitor] 40 mg PO HS 04/18/17 04/20/17 History Donepezil [Aricept] 10 mg PO DAILY 04/18/17 04/20/17 History Lisinopril [Zestril] 40 mg PO DAILY 04/18/17 04/20/17 History Metoprolol Tartrate [Lopressor] 50 mg PO BID 04/18/17 04/20/17 History Tolterodine ER [Detrol LA] 4 mg PO HS 04/18/17 04/20/17 History carBAMazepine 200 mg PO QID 04/18/17 04/20/17 History Allergies Allergy/AdvReac Type Severity Reaction Status Date / Time ketorolac [From Toradol] Allergy Unknown Verified 04/18/17 12:12 meperidine [From Demerol] Allergy Unknown Verified 04/18/17 12:12 Penicillins Allergy Unknown Verified 04/18/17 12:12 Physical Exam Vitals: Intake and Output 04/20/17 04/21/17 04/21/17 22:59 06:59 14:59 Output Total 1700 Balance -1700 Output: Urine 1700 Other: Voiding Method Indwelling Catheter Indwelling Catheter # Bowel Movements 1 Weight 35.5 kg 35.5 kg Patient is lying comfortably on the bed on IV morphine drip respiratory rate is around 25-30 we will increase the morphine drip because of that reason. Does not appear to be in significant respiratory distress or pain. S1-S2 present, no murmurs rubs or gallops Crackles on lung exam Assessment and Plan Plan: Cerebrovascular accident: Involving left basal ganglia. Next and #2 patient is presently hospice and patient will be discharged home with home hospice.
--- NOTE | 2017-04-21 11:59 | P.DS ---
Providers Date of admission: 04/20/17 17:01 Attending physician: Jamie Ochoa Primary care physician: [facility] Course: Please refer to my HPI Plan - Discharge Summary New Discharge Prescriptions: Discontinued Lisinopril [Zestril] 40 mg PO DAILY Tolterodine ER [Detrol LA] 4 mg PO HS Metoprolol Tartrate [Lopressor] 50 mg PO BID Donepezil [Aricept] 10 mg PO DAILY Atorvastatin [Lipitor] 40 mg PO HS carBAMazepine 200 mg PO QID Discharge Disposition: HOME WITH HOSPICE
== END 2017-04-21 13:05 | disposition hospice, home (50) | DRG 66 ==
LOC: 6SEL 17:01 → 5ONC 19:16
PROVIDERS: ADMIT Hospitalist; ATTEND Hospitalist
DX: I63.9 Cerebral infarction, unspecified (principal); F03.90 Unspecified dementia, unspecified severity, without behavioral disturbance, psychotic disturbance, mood disturbance, and anxiety; N31.9 Neuromuscular dysfunction of bladder, unspecified; G50.0 Trigeminal neuralgia; I25.10 Atherosclerotic heart disease of native coronary artery without angina pectoris; E78.5 Hyperlipidemia, unspecified; I10 Essential (primary) hypertension; H02.402 Unspecified ptosis of left eyelid; M19.91 Primary osteoarthritis, unspecified site; R26.9 Unspecified abnormalities of gait and mobility; Z79.82 Long term (current) use of aspirin; Z79.899 Other long term (current) drug therapy; Z88.5 Allergy status to narcotic agent; Z88.0 Allergy status to penicillin